=== PATIENT | female | born 1955 | race Caucasian/White ===

== ENCOUNTER → 2017-02-20 | Outpatient (CLI) | payer OTHER | END | disposition home or self-care (01) | LOC: CFH 09:32 | PROVIDERS: ATTEND Nurse Practitioner Family | DX: I37.1 Nonrheumatic pulmonary valve insufficiency (principal); E11.9 Type 2 diabetes mellitus without complications; I10 Essential (primary) hypertension; C44.90 Unspecified malignant neoplasm of skin, unspecified | CPT/HCPCS: 93306 ==

== ENCOUNTER → 2019-03-09 | Outpatient (CLI) | payer MEDICARE, OTHER | END | disposition home or self-care (01) | LOC: CVU 12:37 | PROVIDERS: ATTEND Physician Assistant | DX: I42.9 Cardiomyopathy, unspecified (principal); E65 Localized adiposity; I10 Essential (primary) hypertension; E11.9 Type 2 diabetes mellitus without complications | CPT/HCPCS: 93306 ==